=== PATIENT | female | born 1995 | race American Indian/Alaskan Native ===

== ENCOUNTER 2016-09-02 20:03 | Inpatient (IN) | payer OTHER ==
--- NOTE | 2016-09-02 20:21 | OBADHP ---
Datetime: 09/02/2016 20:10 IP Adm Impression Other: Post EDC Admit Comment, IP Provider: 20yo with IUP at 40.1 wks reports here today for IOLK due to postda te and Pyelonephritis in current . She denies VB or LOF and reports good movements. [place]- irregular, FHR - Category 1, Cx: Assessment: IUP at 40+ wks Post EDC. Plan: Admit to LND. Cervidil for cervical ripening Monitor for progress of labor. Pelvic Type - PN: Adequate Extremities - PN: Normal Abdomen - PN: Normal Back - PN: Normal Breast - PN: Normal Lungs - PN: Normal Heart - PN: Normal Thyroid - PN: Normal Neurologic - PN: Normal HEENT - PN: Normal General - PN: Normal Presentation-Admit: Vertex FHR - Baseline A Provider: 130 Membranes, Provider: Intact Contraction Comments Provider: Irregular Comments, ACOG Physical Exam: Abd: Soft, NT, BS- present Gestation - Est Wks by US: 40.1 IP Chief Complaint: Scheduled induction of labor NICHD Variability Prov Fetus A: Absent - Undetectable NICHD Accel Fetus A IP Provider: 15X15 FHR Category Provider Fetus A: Category I NICHD Decel Fetus A IP Provider: None Genitourinary Exam: Normal DTRs - PN: Normal EGA AdmitDate IP: 40.1 IP Adm Impression: Term, intrauterine ; No Active Labor IP Admit Plan: Admit to unit; Initiate labor protocol Datetime: 07/07/2016 09:28 Dilatation, Provider: 0 Effacement, Provider: 0 Station, Provider: -3 Datetime: 07/05/2016 10:22 Vital Signs Provider: Reviewed; Within Normal Limits
[2016-09-02 20:39] VITALS: BMI 36.1
[2016-09-02] MEDS: Lactated Ringer's 1,000 ML IV SCH ×2 (21:33→21:45)
[2016-09-02 21:45] LABS: BASO % 0.2 % (0.0-2.0); EOS # 0.1 K/uL (0.0-0.7); EOS % 0.8 % (0.0-4.0); HEMATOCRIT 26.3 % (34.0-47.0); LYMPH # 1.3 K/uL (1.0-4.3); LYMPH % 15.7 % (20.0-40.0); MEAN CELL VOLUME 72.8 fL (81.0-99.0); MEAN CORPUSCULAR HEMOGLOBIN 22.8 pg (27.0-31.0); MEAN CORPUSCULAR HGB CONC 31.3 g/dL (33.0-37.0); MEAN PLATELET VOLUME 10.7 fL (7.2-11.7); MONO # 0.8 K/uL (0.0-0.8); MONO % 10.5 % (0.0-10.0); NRBC % 0.1 % (0.0-2.0); RED CELL DISTRIBUTION WIDTH 16.1 % (11.5-14.5); WHITE BLOOD COUNT 8.1 K/uL (4.8-10.8)
[2016-09-02 21:52] LABS: CHLORIDE 103 mmol/L (98-107)
[2016-09-02 21:53] LABS: POTASSIUM 4.1 mmol/L (3.6-5.2); SODIUM 137 mmol/L (132-148)
[2016-09-02 21:54] LABS: RBC URINE 1 /hpf (0-3); URINE BACTERIA RARE (<OCC); URINE BILIRUBIN NEGATIVE (NEGATIVE); URINE BLOOD NEGATIVE (NEGATIVE); URINE COLOR Yellow (YELLOW); URINE GLUCOSE (UA) NORMAL (Normal); URINE KETONE NEGATIVE (NEGATIVE); URINE LEUKOCYTE ESTERASE NEG Leu/uL (Negative); URINE PROTEIN NEGATIVE (NEGATIVE); WBC URINE 2 /hpf (0-5)
[2016-09-02 21:55] LABS: BILIRUBIN,TOTAL < 0.1 mg/dL (0.2-1.3); GFR AFRICAN-AMERICAN > 60
[2016-09-02 21:56] LABS: ALB/GLOB RATIO 1.1 (1.0-2.1); ALKALINE PHOSPHATASE 119 U/L (38-126); ALT/SGPT 10 U/L (9-52); AST/SGOT 18 U/L (14-36); BLOOD UREA NITROGEN 6 mg/dL (7-17); CALCIUM 8.5 mg/dl (8.6-10.4); CARBON DIOXIDE 21 mmol/L (22-30); GLUCOSE,RANDOM 80 mg/dL (65-105); TOTAL PROTEIN 6.4 g/dL (6.3-8.3)
--- NOTE | 2016-09-03 07:37 | OBPN ---
Datetime: 09/03/2016 07:32 IP Progress Impression: Normal progression of labor; Reassuring heart rate IP Procedures: Sterile Vag Exam IP Progress Plan: Continue present management; Cervical Ripening Pool Provider: Negative Contraction Comments Provider: irregular FHR - Baseline A Provider: 130 Gestation - Est Wks by US: 40.0 Presentation-Admit: Vertex IP Progress Note Comment: IUP at 40+ wks being induced. Cervidil removed. To continue cervical ripening after 1 hour with po cytotec. Vital Signs Provider: Reviewed NICHD Variability Prov Fetus A: Moderate 6-25bpm Dilatation, Provider: FT Effacement, Provider: 50 Station, Provider: -3 Datetime: 09/02/2016 20:10 Membranes, Provider: Intact NICHD Accel Fetus A IP Provider: [id number] FHR Category Provider Fetus A: Category I NICHD Decel Fetus A IP Provider: None
--- NOTE | 2016-09-03 11:59 | OBPN ---
Datetime: 09/03/2016 11:56 Contraction Comments Provider: irrg FHR - Baseline A Provider: 130 IP Progress Note Comment: pt was examined at bed side ve ft/50/-3, unchanged s/p cervidil, s/p cytotec. plan to do serial induction reg deit ambulation shower will put cervidil later. dr bronson aware NICHD Accel Fetus A IP Provider: 15X15 FHR Category Provider Fetus A: Category I NICHD Variability Prov Fetus A: Moderate 6-25bpm Dilatation, Provider: ft Effacement, Provider: 50 Station, Provider: -3 Datetime: 09/03/2016 07:32 NICHD Decel Fetus A IP Provider: None
[2016-09-03] MEDS: Lactated Ringer's 1,000 ML IV SCH (13:35)
[2016-09-03] MEDS ORDERED: Nalbuphine 20 mg/ml Inj (1 ml) IVP PRN (18:47)
--- NOTE | 2016-09-03 19:09 | OBPN ---
Datetime: 09/03/2016 19:06 IP Procedures: Sterile Vag Exam IP Progress Plan: Continue present management FHR - Baseline A Provider: 130 IP Progress Note Comment: pt was examined t bed side ve ft/50/-3 cervidil placed r/a/b discussed Vital Signs Provider: Reviewed; Within Normal Limits NICHD Accel Fetus A IP Provider: 15X15 FHR Category Provider Fetus A: Category I NICHD Variability Prov Fetus A: Moderate 6-25bpm Dilatation, Provider: ft Effacement, Provider: 50 Station, Provider: -3
--- NOTE | 2016-09-04 06:53 | OBPN ---
Datetime: 09/04/2016 06:46 IP Progress Plan Other: cervidil removed IP Procedures: Sterile Vag Exam FHR - Baseline A Provider: 130 IP Progress Note Comment: pt was examined at bed side ve 1-2/60/-2 cervidil removed NICHD Accel Fetus A IP Provider: 15X15 FHR Category Provider Fetus A: Category I NICHD Variability Prov Fetus A: Moderate 6-25bpm Dilatation, Provider: 2 Effacement, Provider: 60 Station, Provider: -3
[2016-09-04] MEDS: Lactated Ringer's 1,000 ML IV SCH (09:00)
[2016-09-04] MEDS ORDERED: Oxytocin 30 UNIT 30 UNITS/500 ML BAG IV ONE (11:01)
[2016-09-04] MEDS ORDERED: Sodium Citrate/Citric Acid 15 ml Sol ONE (13:13)
[2016-09-04] MEDS ORDERED: Oxytocin 20 units in LR 2,000 ML IV ONE (13:13)
[2016-09-04] MEDS ORDERED: Oxytocin 30 UNIT 30 UNITS/500 ML BAG IV SCH (13:15)
[2016-09-04] MEDS ORDERED: cefOXitin IV 2 gm in Dextrose 2 GM/50 ML BAG IVPB ONE ×3 (13:16→14:06)
[2016-09-04] MEDS ORDERED: Sodium Citrate/Citric Acid 15 ml Sol PO ONE (13:30)
[2016-09-04] MEDS ORDERED: Morphine 1 mg/ml preservative-free Inj(Duramorph) ONE (13:48)
--- NOTE | 2016-09-04 15:44 | PCM.SURG1 ---
Surgeon's Initial Post Op Note - Surgeon's Notes Surgeon: Dr Cobb Senior Risk Analyst: Dr Stein Type of Anesthesia: Spinal Anesthesia Administered By: Dr Garcia Pre-Operative Diagnosis: IUP at 40.3Wks, Non reassuring Heart Rate tracing ,. Failure of induction due to Cephalopelvic disproportion Operative Findings: Live famale infant BW of 8Ibs 2oz, scores of 9 and 9. Normal uterus, fallopian tubes and ovaries. There was a 1.5X o.8cm left paratubal cyst which was removed with the cautery. IV Fluid intake 1500mls. Urine output- 200mls. EBL - 600mls Post-Operative Diagnosis: Same as Preop diagnosis Operation Performed: Primary Low Transverse section,. Removal of Left Paratubal cyst. Specimen/Specimens Removed: Left Paratubal Cyst for pathology. Estimated Blood Loss: EBL {In ML}: 600 Post-Op Condition: Good Date of Surgery/Procedure: 09/04/16 Time of Surgery/Procedure: 14:40
--- NOTE | 2016-09-04 16:48 | OBPPN ---
Datetime: 09/04/2016 15:52 PP Pain Prov: Within normal limits PP Progress Note Prov: called to the room for c/o heavy bleeding on exam- initial bp 121 /62 . trickle of blood noted from perineum Fundus above umbilicus Bimanual exam done.800cc of blood clots removed. im merthegine given .Bleeding continued.Cytotec 1000mcg given rectally as well as 250mcg of im hemabate given.Fundus noted to be firm and now below u mbilicus and bleeding minimal now.Patient stable. transfuse 1units prbc dr bronson aware
[2016-09-04] MEDS ORDERED: Oxycodone/Acetaminophen 5/325 mg Tab PO PRN (17:13)
[2016-09-04] MEDS ORDERED: Oxytocin 30 UNIT 0 UNITS/0 ML BAG IV ONE (18:06)
[2016-09-04] MEDS: cefOXitin IV 2 gm in Dextrose 2 GM/50 ML BAG IVPB SCH (20:46)
--- NOTE | 2016-09-04 22:12 | OBDS ---
DELIVERY PERSONNEL Delivery Doctor: Komal Cobb MD Scrub Nurse: Katie Mclaughlin OBT [place] Seamer: Jaclyn Banks RN Anesthesiologist: Cheryl Garcia MD MATERNAL INFORMATION Delivery Anesthesia: Spinal Medications in Delivery: pitoci 20 Estimated Blood Loss (ml): 700 Placenta Cultured: No Maternal Complications: Other Other Maternal Complications: none reauring fhr/not tolrating induction Provider Comments: Uncomplicated Primary Section with delivery of a viable female infant wi th scores of 9 and 9. LABOR SUMMARY EDC: 09/01/2016 00:00 No. Babies in Womb: 1 Attempted: No Labor Anesthesia: None LABOR INFORMATION Reason for Induction: Postterm Cervical Ripening Agents: Cytotec @ (Annotations: 50mcg po) Oxytocin: Induction Group B Beta Strep: Negative Antibiotics # of Doses: 1 Antibiotics Time of Last Dose: 1300 Steroids Given: None Reason Steroids Not Administered: Not Applicable MEMBRANES Membranes Rupture Method: Artificial Rupture of Membranes: 09/04/2016 13:02 Length of Rupture (hrs): 1.32 Amniotic Fluid Color: Clear Amniotic Fluid Amount: Moderate Amniotic Fluid Odor: Normal STAGES OF LABOR Stage 3 hrs: 0 Stage 3 min: 1 VAGINAL DELIVERY Episiotomy: None Laceration Extension: N/A Laceration Type: None CSECTION DELIVERY Primary Indication: Nonreassuring Status Secondary Indication: Failed Induction CSection Urgency: Emergency CSection Incidence: Primary Labor: Labor Elective: Nonelective CSection Incision: Lower Uterine Transverse Uterine Closure: Double-layer closure BABY A INFORMATION Delivery Date/Time: 09/04/2016 14:21 Method of Delivery: Born in Route : No : N/A Forceps: N/A Vacuum Extraction: N/A Shoulder Dystocia : No SHOULDER DYSTOCIA BABY A Delivery Date/Time: 09/04/2016 14:21 PRESENTATION/POSITION BABY A Presentation: Cephalic Cephalic Presentation: Vertex Breech Presentation: N/A PLACENTA INFORMATION BABY A Placenta Delivery Time : 09/04/2016 14:22 Placenta Method of Delivery: Manual Removal Placenta Status: Delivered SCORES BABY A Heart Rate 1 min: >100 bpm Resp Effort 1 min: Good Cry Reflex Irritability 1 min: Cough or Sneeze or Pulls Away Muscle Tone 1 min: Active Motion Color 1 min: Body [place], Extremities Blue Resuscitation Effort 1 min: Tactile Stimulation SCORE 1 MIN: 9 Heart Rate 5 min: >100 bpm Resp Effort 5 min: Good Cry Reflex Irritability 5 min: Cough or Sneeze or Pulls Away Muscle Tone 5 min: Active Motion Color 5 min: Body [place], Extremities Blue SCORE 5 MIN: 9 INFORMATION BABY A Gestational Age at Delivery: 40.3 Gestational Status: Term Outcome : Liveborn Condition : Stable Infant Sex: Female IDENTIFICATION/MEDS BABY A ID Band Number: [id number] ID Band Location: Left Leg; Left Arm Sensor Applied: Yes Sensor Number: [id number] Sensor Location : Cord Clamp WEIGHT/LENGTH BABY A Infant Birthweight (gms): 3650 Infant Weight (lb): 8 Infant Weight (oz): 1 Infant Length Inches: 19.50 Infant Length cms: 49.5 CORD INFORMATION BABY A No. Cord Vessels: 3 Nuchal Cord : N/A Cord Blood Taken: N/A Infant Suction: Mouth; Nose ASSESSMENT BABY A Complications: None Physical Findings at Delivery: Within Normal Limits Infant Respirations: Appears Normal Black Studies Professor/ALS Called : No Infant Care By: DR QUIROS Transferred To: Remains with Mother
[2016-09-05] MEDS: cefOXitin IV 2 gm in Dextrose 2 GM/50 ML BAG IVPB SCH ×2 (04:46→12:27)
[2016-09-05] MEDS ORDERED: DiphenhydrAMINE 50 mg/ml Inj IVP PRN (06:11)
[2016-09-05 06:27] LABS: BASO % 0.1 % (0.0-2.0); EOS % 0.2 % (0.0-4.0); HEMATOCRIT 21.7 % (34.0-47.0); LYMPH # 1.1 K/uL (1.0-4.3); LYMPH % 9.4 % (20.0-40.0); MEAN CELL VOLUME 74.2 fL (81.0-99.0); MEAN CORPUSCULAR HEMOGLOBIN 23.5 pg (27.0-31.0); MEAN CORPUSCULAR HGB CONC 31.6 g/dL (33.0-37.0); MEAN PLATELET VOLUME 10.4 fL (7.2-11.7); MONO # 0.8 K/uL (0.0-0.8); MONO % 6.5 % (0.0-10.0); NRBC % 0.1 % (0.0-2.0); PLATELET COUNT 158 K/uL (130-400); WHITE BLOOD COUNT 11.8 K/uL (4.8-10.8)
[2016-09-05 08:53] LABS: NEUTROPHIL 81 % (50-75); TOTAL CELLS COUNTED 100
[2016-09-05] MEDS: Prenatal Multivit/Folic Acid/Iron Tab PO SCH (09:52)
[2016-09-05] MEDS: Simethicone 80 mg Chewtab PO SCH ×5 (09:56→21:26)
--- NOTE | 2016-09-05 10:50 | OP ---
PROCEDURE DATE: 09/04/2016 PREOPERATIVE DIAGNOSES: Intrauterine at 40 weeks, in labor, non- reassuring heart tracing. POSTOPERATIVE DIAGNOSIS: Intrauterine at 40 weeks, in labor, non- reassuring heart tracing. PROCEDURE: 1) Primary low transverse section. 2) Removal of left Paratubal cyst SURGEON: Dr. Cobb. BILINGUAL MIDDLE SCHOOL TEACHER: Dr. Fregoso. Assistance to the procedure was needed for exposure of tissues and help in the delivery of the baby. The human resource assistant remained with the surgery throughout its entire length. TYPE OF ANESTHESIA: Spinal anesthesia administered by Dr. Garcia. OPERATIVE FINDINGS: A live female infant with weight of 8 pounds 2 ounces and scores of 9 in the first and fifth minutes, respectively. Both fallopian tubes and ovaries as well as the uterus appeared normal. There was a 1.5 x 0.8 cm left paratubal cyst which was removed during the procedure. INTRAVENOUS FLUID INTAKE: 1500 mL. URINE OUTPUT: 200 mL. ESTIMATED BLOOD LOSS: 600 mL. COMPLICATIONS: None. SPECIMEN: Placenta was sent for pathology and left Paratubal cyst. DESCRIPTION OF PROCEDURE: After obtaining informed consent and discussing the risks, benefits and alternatives to section as the procedure, the patient was sent to the OR with IV running and Kline catheter in place. The patient was sat on the OR table and after adequate spinal anesthesia, was put in a supine position with a left lateral tilt. The patient was then prepped and draped in the usual sterile fashion. A Pfannenstiel skin incision was made about 2 cm above the pubic symphysis and this was sharply extended through the subcutaneous tissues until the rectus fascia was identified. A transverse incision was made in the rectus fascia and was extended to both sides by means of sharp dissection with Glass scissors. The rectus fascia was from the underlying rectus muscles both superiorly and inferiorly by means of blunt dissection and sharp dissection using Glass scissors. The rectus muscles were in the midline to expose the peritoneum which was tented between 2 Judith clamps and sharply entered using the Metzenbaum scissors and with good visualization of the bladder. Once the abdominal cavity was entered, the above findings were noted. The vesicouterine fold of peritoneum was identified, incised in a transverse fashion with the Metzenbaum scissors and retracted inferiorly to expose the lower uterine segment. A low transverse incision was made using a scalpel. The incision was sent through the myometrial layers until the amniotic membranes were identified. The incision was extended to both sides in a blunt fashion. The amniotic membranes were ruptured with a pickup forceps and the baby which was in the left occipital posterior position was delivered. Baby cried immediately after the . The mouth and nostrils were bulb suctioned. The 3-vessel umbilical cord was clamped and cut and the baby was given to the nurse. Umbilical cord blood was obtained and the placenta was manually removed from the uterine cavity. The uterus was then brought out of the abdominal cavity and the uterine cavity cleaned of all debris using dry laparotomy pads. The uterine incision was then closed in 2 layers using Vicryl #0; the first layer in a running locked fashion and the second layer in a running fashion imbricating the first layer. This was performed until hemostasis was noted at the incisional site. Irrigation of the pelvis with warm normal saline was then undertaken both posteriorly and anterior to the uterus. The left paratubal cyst was held up and the stalk of tissue suspending it was doubly ligated with Vicryl 2-0 suture and cut. The sample was sent for pathology. Once hemostasis was done, the uterus was returned into the abdominal cavity. The incisional sites were reinspected for hemostasis. Once hemostasis was totally assured, attention was then turned to the anterior abdominal wall which was closed in layers with 2-0 Vicryl suture for the peritoneum and the rectus muscles. The rectus fascia was reapproximated using Vicryl #0. The subcutaneous tissue was brought together by means of #2-0 plain catgut. The skin was closed in a subcuticular fashion using #3-0 Biosyn. All counts of instruments, laparotomy pads, and needles used were correct x 3 and the patient was sent to the recovery room awake and in stable condition. Karl Cobb MD cc: [id number] TT: 09/05/2016 10:49:17 elizabeth [email or web address]
[2016-09-05] MEDS: Oxycodone/Acetaminophen 5/325 mg Tab PO PRN ×2 (17:29→21:26)
[2016-09-06] MEDS: Oxycodone/Acetaminophen 5/325 mg Tab PO PRN ×2 (08:22→17:27)
[2016-09-06] MEDS: Simethicone 80 mg Chewtab PO SCH ×4 (09:29→21:31)
[2016-09-06] MEDS: Prenatal Multivit/Folic Acid/Iron Tab PO SCH (09:29)
[2016-09-06 16:13] VITALS: RESP 20; O2SAT 100
[2016-09-07 00:17] VITALS: BP 130/80; PULSE 106; TEMP 97.9
[2016-09-07] MEDS: Oxycodone/Acetaminophen 5/325 mg Tab PO PRN ×2 (03:41→09:29)
--- NOTE | 2016-09-07 09:08 | OBPPN ---
Datetime: 09/06/2016 09:07 PP Pain Prov: Within normal limits PP Nausea Prov: Denies PP Flatus Prov: Yes PP Breasts Prov: Normal PP Heart Prov: Normal PP Lungs Prov: Normal PP Abdomen/Uterus Prov: Normal PP Lochia Prov: Normal PP Vulva/Perineum Prov: Normal PP CVA Tenderness Prov: Normal PP Extremities Prov: Normal PP Comments Phys Exam Prov: Abd: Soft, NT, BS- present Incision: Clean and dry PP Impression Prov: Normal progression PP Plan Prov: Continue present management Datetime: 09/05/2016 09:05 PP C/S Incision Prov: Normal PP Progress Prov: Normal PP Progress Note Prov: S/P , POD#1 Clinically Stable. Plan: Continue care. Vital Signs Provider PP: Reviewed
--- NOTE | 2016-09-07 09:11 | OBPPN ---
Datetime: 09/07/2016 09:09 PP Pain Prov: Within normal limits PP Nausea Prov: Denies PP Flatus Prov: Yes PP Breasts Prov: Normal PP Heart Prov: Normal PP Lungs Prov: Normal PP Abdomen/Uterus Prov: Normal PP Lochia Prov: Normal PP Vulva/Perineum Prov: Normal PP CVA Tenderness Prov: Normal PP Extremities Prov: Normal Datetime: 09/06/2016 09:07 PP Progress Note Prov: HB- 6.9mg/dl Continue with Ferrous sulfate.
--- NOTE | 2016-09-07 09:13 | OBPPN ---
Datetime: 09/07/2016 09:09 PP Comments Phys Exam Prov: Abd: soft, NT, BS- present Incision : Clean and dry PP Impression Prov: Normal progression PP Plan Prov: Discharge PP Progress Note Prov: S/P Primary Section, POD #3 Clinically Stable. Plan: D/c - Home
--- NOTE | 2016-09-07 09:16 | OBDCSUM ---
Datetime: 09/07/2016 09:12 Discharged to, Provider: Home Follow up at, Provider: Dr Cobb Disch Instr Activity: Normal activity Disch Instr Diet: Regular Discharge Instructions, Provider: Routine instructions given Discharge Diagnosis, Provider: Term Delivered Discharge Time: 09/07/2016 09:14 Follow up in weeks, Provider: 2weeks Disch Referrals: None Contraception discussed, Prov: Yes Discharge Comment, Provider: S/P Uncomplicated Delivery, Clinically Stable Discharge Diagnosis Prov Other: S/P Uncomplicated Delivery, Clinically Stable Contraception after Delivery: Undecided
[2016-09-07] MEDS: Simethicone 80 mg Chewtab PO SCH (09:29)
[2016-09-07] MEDS: Prenatal Multivit/Folic Acid/Iron Tab PO SCH (09:29)
== END 2016-09-07 14:10 | disposition home or self-care (01) | DRG 370 ==
LOC: C.EROB 20:03 → C.4LDOR 20:39 → C.4D 20:48 → C.4M 09-04 18:18
PROVIDERS: ADMIT Obstetrics & Gynecology; ATTEND Obstetrics & Gynecology
PROC: 10D00Z1 Extraction of Products of Conception, Low, Open Approach (ICD-10-PCS; principal; 2016-09-04)
PROC: 3E0P7GC Introduction of Other Therapeutic Substance into Female Reproductive, Via Natural or Artificial Opening (ICD-10-PCS; 2016-09-04)
PROC: 0UB60ZZ Excision of Left Fallopian Tube, Open Approach (ICD-10-PCS; 2016-09-04)
DX: O48.0 Post-term pregnancy (principal); O75.3 Other infection during labor; N12 Tubulo-interstitial nephritis, not specified as acute or chronic; O61.9 Failed induction of labor, unspecified; O76 Abnormality in fetal heart rate and rhythm complicating labor and delivery; O99.89 Other specified diseases and conditions complicating pregnancy, childbirth and the puerperium; N83.8 Other noninflammatory disorders of ovary, fallopian tube and broad ligament; Z37.0 Single live birth; Z3A.40 40 weeks gestation of pregnancy

== ENCOUNTER 2017-01-20 16:55 | Emergency (ER) | payer OTHER ==
[2017-01-20 16:55] VITALS: BMI 36.1
[2017-01-20 17:53] LABS: RBC URINE < 1 /hpf (0-3); URINE BILIRUBIN NEGATIVE (NEGATIVE); URINE BLOOD NEGATIVE (NEGATIVE); URINE COLOR Yellow (YELLOW); URINE GLUCOSE (UA) NORMAL (Normal); URINE KETONE NEGATIVE (NEGATIVE); URINE LEUKOCYTE ESTERASE NEG Leu/uL (Negative); URINE PROTEIN NEGATIVE (NEGATIVE); WBC URINE 1 /hpf (0-5)
[2017-01-20 18:27] VITALS: O2SAT 100
--- NOTE | 2017-01-20 18:57 | C.PDOC ---
History Of Present Illness 01/20/2017 21 y/o female presents to the ED complaining of lower abdominal pain for the past three weeks. Patient reports the pain is intermittent and radiates to the back causing sharp pain. She also states having diarrhea for the past month. Patient denies any dysuria, frequency, fever, nausea, vomiting or other complaints. Time Seen by Provider: 01/20/17 18:23 Chief Complaint (Nursing): Abdominal Pain History Per: Patient History/Exam Limitations: no limitations Onset/Duration Of Symptoms: Intermittent Episodes (3 weeks) Current Symptoms Are (Timing): Still Present Pain Scale Rating Of: 6 Location Of Pain/Discomfort: Suprapubic Radiation Of Pain To:: Back Quality Of Discomfort: Sharp Associated Symptoms: Diarrhea, Back Pain. denies: Fever, Nausea, Vomiting Recent travel outside of the [place]: No Past Medical History Reviewed: Historical Data, Nursing Documentation, Vital Signs Vital Signs: Last Vital Signs Temp 97.7 F 01/20/17 19:04 Pulse 78 01/20/17 19:04 Resp 20 01/20/17 19:04 BP 118/76 01/20/17 19:04 Pulse Ox 100 01/25/17 06:42 - [facility] EXCISION OF LEFT FALLOPIAN TUBE, OPEN APPROACH (09/02/16) EXTRACTION OF POC, LOW CERVICAL, OPEN APPROACH (09/02/16) INTRODUCE OF OTH THERAP SUBST INTO FEM REPROD, VIA OPENING (09/02/16) Family History: States: Unknown Family Hx - Social History Hx Alcohol Use: Yes Hx Substance Use: No - Immunization History Hx Tetanus Toxoid Vaccination: Yes Hx Influenza Vaccination: No Hx Pneumococcal Vaccination: No Review Of Systems Constitutional: Negative for: Fever Gastrointestinal: Positive for: Diarrhea. Negative for: Nausea, Vomiting Genitourinary: Negative for: Dysuria, Frequency, Vaginal Discharge Musculoskeletal: Positive for: Back Pain Neurological: Negative for: Headache Physical Exam - Physical Exam Appears: Well, Non-toxic, No Acute Distress Skin: Normal Color, Warm, Dry Head: Atraumatic, Normacephalic Cardiovascular: Rhythm Regular, No Murmur Respiratory: Normal Breath Sounds, No Wheezing Gastrointestinal/Abdominal: Bowel Sounds (active), Soft, No Tenderness, No Distention, No Guarding, No Rebound Neurological/Psych: Oriented x3, Normal Speech, Normal Motor, Normal Sensation Gait: Steady ED Course And Treatment O2 Sat by Pulse Oximetry: 100 (room air) Pulse Ox Interpretation: Normal Medical Decision Making Medical Decision Making: Impression: 21 y/o female with abdominal pain and diarrhea. Plan: -- Urinalysis -- Reassess and disposition Progress Notes: pt with lower abdominal pain intermittent for 3 weeks, with approx 4 episodes watery brown stool per day. no fever or chills, no change in diet, no weight loss. abdomen soft, nd, nt on exam. pt with no recent antibiotic use. no travel. will d/c pt with stool specimen cup to bring to pmd. 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 Bring stool specimen for your doctor to send for testing. Take Tylenol for pain if needed. Instructions: Acute Diarrhea (ED) Forms: General Discharge Instructions, [facility] (Libyan) - Clinical Impression Clinical Impression: Diarrhea, Abdominal pain - Scribe Statement The provider has reviewed the documentation as recorded by the Scribe 01/20/2017 Scribe Attestation: Melia Aparicio MD Scribe Attestation: All medical record entries made by the Scribe were at my direction and personally dictated by me. I have reviewed the chart and agree that the record accurately reflects my personal performance of the history, physical exam, medical decision making, and the department course for this patient. I have also personally directed, reviewed, and agree with the discharge instructions and disposition.
[2017-01-20 19:05] VITALS: BP 118/76; PULSE 78; RESP 20; TEMP 97.7
--- NOTE | 2017-01-20 19:09 | C.PDOC ---
Time Seen by Provider: 01/20/17 18:23 Chief Complaint (Nursing): Abdominal Pain Past Medical History Vital Signs: Last Vital Signs Temp 98.5 F 01/20/17 17:12 Pulse 58 L 01/20/17 17:12 Resp 18 01/20/17 17:12 BP 116/74 01/20/17 17:12 Pulse Ox 100 01/20/17 17:12 - [facility] EXCISION OF LEFT FALLOPIAN TUBE, OPEN APPROACH (09/02/16) EXTRACTION OF POC, LOW CERVICAL, OPEN APPROACH (09/02/16) INTRODUCE OF OTH THERAP SUBST INTO FEM REPROD, VIA OPENING (09/02/16) Family History: States: Unknown Family Hx - Social History Hx Alcohol Use: Yes Hx Substance Use: No - Immunization History Hx Tetanus Toxoid Vaccination: Yes Hx Influenza Vaccination: No Hx Pneumococcal Vaccination: No ED Course And Treatment O2 Sat by Pulse Oximetry: 100 Medical Decision Making Medical Decision Making: pt with lower abdominal pain intermittent for 3 weeks, with approx 4 episodes watery brown stool per day. no fever or chills, no change in diet, no weight loss. abdomen soft, nd, nt on exam. pt with no recent antibiotic use. no travel. will d/c pt with stool specimen cup to bring to pmd. Disposition - Disposition Referrals: Chris Perdue Jr., MD [Staff Provider] - Disposition: HOME/ ROUTINE Disposition Time: 19:11 Condition: STABLE Additional Instructions: Follow Brat diet- banana, applesauce, plain white rice, tea, Follow up with your construction executive and with your primary care doctor. Bring stool specimen for your doctor to send for testing. Take Tylenol for pain if needed. Forms: [facility] (Nepali), General Discharge Instructions - Clinical Impression Clinical Impression: Diarrhea, Abdominal pain
== END 2017-01-20 19:20 | disposition home or self-care (01) ==
LOC: C.ER 16:55
DX: R19.7 Diarrhea, unspecified (principal); R10.30 Lower abdominal pain, unspecified

== ENCOUNTER 2017-07-22 15:17 | Emergency (ER) | payer OTHER ==
[2017-07-22 15:17] VITALS: BMI 36.1
[2017-07-22 15:31] VITALS: RESP 18; O2SAT 100
--- NOTE | 2017-07-22 16:37 | C.PDOC ---
History Of Present Illness 21-year-old female, () presents to the emergency department with complaints of suprapubic cramping, associated with nausea, and non-bloody/non-bilious vomiting for the past three days. Patient also notes mild spotting when she wipes. Denies vomiting, back pain, fever. Time Seen by Provider: 07/22/17 16:16 Chief Complaint (Nursing): Abdominal Pain History Per: Patient History/Exam Limitations: no limitations Onset/Duration Of Symptoms: Days Current Symptoms Are (Timing): Still Present Past Medical History Reviewed: Historical Data, Nursing Documentation, Vital Signs Vital Signs: Last Vital Signs Temp 98.1 F 07/22/17 15:29 Pulse 69 07/22/17 15:29 Resp 18 07/22/17 15:29 BP 118/74 07/22/17 15:29 Pulse Ox 100 07/22/17 18:55 - [facility] EXCISION OF LEFT FALLOPIAN TUBE, OPEN APPROACH (09/02/16) EXTRACTION OF POC, LOW CERVICAL, OPEN APPROACH (09/02/16) INTRODUCE OF OTH THERAP SUBST INTO FEM REPROD, VIA OPENING (09/02/16) Family History: States: No Known Family Hx - Social History Hx Alcohol Use: Yes Hx Substance Use: No - Immunization History Hx Tetanus Toxoid Vaccination: Yes Hx Influenza Vaccination: No Hx Pneumococcal Vaccination: No Review Of Systems Except As Marked, All Systems Reviewed And Found Negative. Constitutional: Negative for: Fever, Chills Respiratory: Negative for: Shortness of Breath Gastrointestinal: Positive for: Nausea, Vomiting, Abdominal Pain. Negative for : Diarrhea Genitourinary: Positive for: Vaginal Bleeding Musculoskeletal: Negative for: Back Pain Skin: Negative for: Rash Neurological: Negative for: Weakness, Headache, Dizziness Physical Exam - Physical Exam Appears: Well, Non-toxic, No Acute Distress Skin: Normal Color, Warm, Dry, No Rash Head: Normacephalic Eye(s): bilateral: PERRL Nose: Normal Oral Mucosa: Moist Lips: Normal Appearing Neck: Normal ROM Cardiovascular: Rhythm Regular, No Murmur Respiratory: Normal Breath Sounds, No Accessory Muscle Use Gastrointestinal/Abdominal: Soft, Tenderness (Mild, suprapubic), No Guarding, No Rebound Extremity: Normal ROM, No Deformity, No Swelling Neurological/Psych: Oriented x3, Normal Speech ED Course And Treatment - Laboratory Results Result Diagrams: 07/22/17 17:11 07/22/17 17:11 Urine POC: Positive O2 Sat by Pulse Oximetry: 100 (RA) Pulse Ox Interpretation: Normal Reevaluation Time: 18:57 Reassessment Condition: Improved (ADVISED FU OBGYN. COPIES RESULTS GIVEN) Medical Decision Making Medical Decision Making: Plan: * Type and Screen * CMP * HCG, Beta * UA * US Transvaginal * Reassess and Disposition Pts urine +for Disposition Counseled Patient/Family Regarding: Studies Performed, Diagnosis, Need For Followup - Disposition Referrals: [facility] [Outside] [facility] [Outside] Disposition: HOME/ ROUTINE Disposition Time: 18:55 Condition: GOOD Prescriptions: Nitrofurantoin Macrocrystals [Macrobid] 1 cap PO BID #14 cap Instructions: Threatened Miscarriage Forms: [facility] (Lao) - Clinical Impression Clinical Impression: Threatened miscarriage - Scribe Statement The provider has reviewed the documentation as recorded by the Scribe (Felicia Murrieta) All medical record entries made by the Scribe were at my direction and personally dictated by me. I have reviewed the chart and agree that the record accurately reflects my personal performance of the history, physical exam, medical decision making, and the department course for this patient. I have also personally directed, reviewed, and agree with the discharge instructions and disposition.
[2017-07-22 17:16] LABS: BASO % 0.2 % (0.0-2.0); EOS # 0.3 K/uL (0.0-0.7); EOS % 3.5 % (0.0-4.0); LYMPH # 1.4 K/uL (1.0-4.3); LYMPH % 19.2 % (20.0-40.0); MEAN CELL VOLUME 73.7 fL (81.0-99.0); MEAN CORPUSCULAR HEMOGLOBIN 23.8 pg (27.0-31.0); MEAN CORPUSCULAR HGB CONC 32.3 g/dL (33.0-37.0); MEAN PLATELET VOLUME 10.4 fL (7.2-11.7); MONO # 0.4 K/uL (0.0-0.8); MONO % 5.8 % (0.0-10.0); NEUT # 5.2 K/uL (1.8-7.0); NEUT % 71.3 % (50.0-75.0); NRBC % 0.1 % (0.0-2.0); RBC 4.64 Mil/uL (3.80-5.20); RED CELL DISTRIBUTION WIDTH 18.1 % (11.5-14.5); WHITE BLOOD COUNT 7.3 K/uL (4.8-10.8)
[2017-07-22 17:24] LABS: SQUAMOUS EPITHIAL 2 /hpf (0-5); URINE BACTERIA MOD (<OCC); URINE BILIRUBIN NEGATIVE (NEGATIVE); URINE BLOOD NEGATIVE (NEGATIVE); URINE CLARITY Hazy (Clear); URINE COLOR Amber (YELLOW); URINE GLUCOSE (UA) NORMAL (Normal); URINE LEUKOCYTE ESTERASE NEG Leu/uL (Negative); URINE PROTEIN NEGATIVE (NEGATIVE); URINE UROBILINOGEN NORMAL mg/dL (0.2-1.0)
[2017-07-22 17:33] LABS: ALB/GLOB RATIO 1.3 (1.0-2.1); ALBUMIN 4.1 g/dL (3.5-5.0); ALT/SGPT 24 U/L (9-52); AST/SGOT 23 U/L (14-36); BLOOD UREA NITROGEN 5 mg/dL (7-17); CALCIUM 8.8 mg/dl (8.6-10.4); GFR AFRICAN-AMERICAN > 60; GFR NON-AFRICAN AMERICAN > 60
--- NOTE | 2017-07-22 18:44 | US ---
Indication: vb ro ectopic Comparison: Limited OB ultrasound performed 07/04/16 Technique: Transabdominal pelvic ultrasound. Findings: Examination limited by habitus. The uterus measures approximately 10.8 x 6.3 x 7.1 cm. Anteverted. Cervix length measures approximately 3.7 cm. There is a single intrauterine fetus present. 4 mm yolk sac. The gestational sac measures 3.7 cm and is compatible with a gestational age of 8 weeks 6 days. The crown-rump length measures 1.9 cm and is compatible with a gestational age of 8 weeks 3 days. There is heart motion which measured 157.7 BPM. The right ovary is not visualized. The left ovary measures approximately 2.8 x 2.3 x 2.4 cm. Blood flow is demonstrated to the left ovary. Impression: Limited study. Live single intrauterine with estimated gestational age 8 weeks 6 days by gestational sac calculation and 8 weeks 3 days by crown-rump length calculation. heart rate 157.7 bpm. Advise an anomaly screen at 16-18 weeks gestational age. The right ovary is not visualized.
[2017-07-22 19:09] VITALS: BP 109/74; PULSE 63; TEMP 97.9
== END 2017-07-22 19:15 | disposition home or self-care (01) ==
LOC: C.ER 15:17
DX: O20.0 Threatened abortion (principal); Z3A.08 8 weeks gestation of pregnancy